=== PATIENT | male | born 1935 | race Caucasian/White ===

== ENCOUNTER 2016-10-22 22:18 | Emergency (ER) | payer OTHER ==
--- NOTE | 2016-10-22 22:26 | PDOC ---
History of Present Illness - General Stated Complaint: PICKED A NODULE ON RIGHT LOWER LEG Time Seen by Provider: 10/22/16 22:22 History Source: Patient Exam Limitations: No Limitations - History of Present Illness Initial Comments: 10/22/16 22:22 This is a 80-year-old male who comes in with his via EMS for evaluation of bleeding of his right lower extremity. Patient has a varicosity on his right lower extremity and there was a small nodule/blood blister that he picked resulting in the varicosity to open and bleed profusely. EMS on their arrival said it was normal stop bleeding but it put pressure on it and by the time he arrived in the emergency room the bleeding had completely resolved. Patient is on aspirin but otherwise denies any blood thinners. Patient denies history of similar problems in the past. Patient denies any other symptoms. PAST MEDICAL HISTORY: no significant history PAST SURGICAL HISTORY: no significant history FAMILY HISTORY: no pertinant history SOCIAL HISTORY: Pt lives with family and is employed. MEDICATIONS: reviewed ALLERGIES: As per nursing notes Review of Systems General: No fevers or chills, no weakness, no weight loss HEENT: No change in vision. No sore throat,. No ear pain CardioVascular: No chest pain or shortness of breath Respiratory:No cough, or wheezing. Gastrointestinal: no nausea, vomitting, diarrhea or constipation, No rectal bleeding Genitourinary: No dysuria, hematuria, or frequency Musculoskeletal: No joint or muscle pain or swelling Neurologic: No headache, vertigo, dizziness or loss of consciousness Psychiatric: nor depression Skin: No rashes or easy bruising, bleeding as per history of present illness Endocrine: no increased thirst or abnormal weight change Allergic: no skin or latex allergy All other systems reviewed and normal GENERAL: The patient is awake, alert, and fully oriented, in no acute distress. HEAD: Normal with no signs of trauma. EYES: Pupils equal, round and reactive to light, extraocular movements intact, sclera anicteric, conjunctiva clear. EXTREMITIES: Normal range of motion, no edema. Right lower extremity medial and just above the ankle there is a small varicosity that is visible with a small approximately 2 mm opening. There is no active bleeding at this time. NEUROLOGICAL: Normal speech, normal gait. PSYCH: Normal mood, normal affect. SKIN: Warm, Dry, normal turgor, no rashes or lesions noted. Procedure note Varicosity was closed with skin glue. Patient tolerated well. Assessment and plan: This is an 80-year-old male who picked at a varicosity and resulted in it bleeding diffusely. Bedtime patient arrived in the emergency room the bleeding had resolved. The varicosity was glued and the patient was discharged home. Past History - Past Medical History Allergies/Adverse Reactions: Allergies Allergy/AdvReac Type Severity Reaction Status Date / Time chlorambucil [From Leukeran] Allergy Intermediate Hives Verified 10/22/16 22:20 Anemia: No Asthma: No Cancer: No Cardiac Disorders: Yes (STENTS TIMES 3 2008) CVA: No COPD: No CHF: No Dementia: No Diabetes: No GI Disorders: No Disorders: No HTN: Yes Hypercholesterolemia: Yes Liver Disease: No Seizures: No Thyroid Disease: No - Surgical History Abdominal Surgery: No Appendectomy: No Cardiac Surgery: Yes (2008 STENTS TIMES ) Cholecystectomy: No Lung Surgery: No Neurologic Surgery: No Orthopedic Surgery: No - Psycho/Social/Smoking Cessation Hx Smoking History: Former smoker Have you smoked in the past 12 months: No If you are a former smoker, when did you quit?: Hx Alcohol Use: Yes (DAILY) Drug/Substance Use Hx: No Substance Use Type: None Hx Substance Use Treatment: No *DC/Admit/Observation/Transfer Diagnosis at time of Disposition: 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 Keep the glue dry for the next 48 hours after that you can shower. Return to the emergency department immediately with ANY new, persistent or worsening symptoms. Continue any medications as previously prescribed by your physician. You should follow up with your primary doctor as soon as possible regarding today's emergency department visit. . Please make sure your doctor reviews the results of your emergency evaluation. Thank you for coming to the Emergency Department today for your care. It was a pleasure to see you today. Please note that your evaluation is INCOMPLETE until you follow-up with your doctor.
[2016-10-22 22:27] VITALS: BP 167/83; PULSE 66; TEMP 97.6; BMI 20.7
== END 2016-10-22 22:32 | disposition home or self-care (01) ==
LOC: FER 22:18
PROC: 0HQKXZZ Repair Right Lower Leg Skin, External Approach (ICD-10-PCS; principal; 2016-10-22)
DX: I83.891 Varicose veins of right lower extremity with other complications (principal); I10 Essential (primary) hypertension; E78.00 Pure hypercholesterolemia, unspecified; Z95.5 Presence of coronary angioplasty implant and graft; Z87.891 Personal history of nicotine dependence
CPT/HCPCS: 12001-25; 99281-25

== ENCOUNTER 2018-07-17 11:25 | Emergency (ER) | payer OTHER ==
[2018-07-17 11:41] VITALS: BP 176/90; PULSE 63; TEMP 98.4
[2018-07-17] MEDS ORDERED: DIPHTH,PERTUSS(ACELL),TET 0.5 ML DISP.SYRIN IM ONE (12:08)
--- NOTE | 2018-07-17 12:13 | PDOC ---
History of Present Illness - General Chief Complaint: Injury Stated Complaint: FALL Time Seen by Provider: 07/17/18 12:08 History Source: Patient Exam Limitations: No Limitations - History of Present Illness Initial Comments: 07/17/18 12:13 82y M hx of htn, membranous glomerulonephritis, hl, cad sp stents x 3 presents for evaluation of a wound sustained sp fall last night. The pt states he slipped in his kitchen last night and fell backwards on his buttocks, and striking his arms on something and avusling his skin when he reachd out to grab somthing. He attempted to remove the skin last night himself but decided to come to get it evaluated. deenies head injury, loc, neck pain, back pain, hip pain, leg pain, arm pain, headache, n/v, recent cough, fever, diarrheam nmelena, bpr, dysuria. pt ntos the pain is mostly on the areas of his skin avulsion. denies being on other blood thinners beside asa. unsure of last tetanus status Past History - Past Medical History Allergies/Adverse Reactions: Allergies Allergy/AdvReac Type Severity Reaction Status Date / Time chlorambucil [From Leukeran] Allergy Intermediate Hives Verified 07/17/18 11:26 Home Medications: Ambulatory Orders Aspirin [ASA -] 81 mg PO ASDIR 10/22/16 Atorvastatin Ca [Lipitor] 20 mg PO HS 10/22/16 Cholecalciferol (Vitamin D3) [Vitamin D-400] 400 unit PO DAILY 07/17/18 Losartan Potassium mg PO DAILY 07/17/18 Anemia: No Asthma: No Cancer: No Cardiac Disorders: Yes (STENTS TIMES 3 2008) CVA: No COPD: No CHF: No Dementia: No Diabetes: No GI Disorders: No Disorders: Yes (KIDNEY MEMBRANOUS GLOMERUNEPHRITIS) HTN: Yes Hypercholesterolemia: Yes Liver Disease: No Seizures: No Thyroid Disease: No Other medical history: ECZEMA - Surgical History Abdominal Surgery: Yes (HERNIA REPAIR) Appendectomy: No Cardiac Surgery: Yes (2008 STENTS TIMES ) Cholecystectomy: No Lung Surgery: No Neurologic Surgery: No Orthopedic Surgery: No - Suicide/Smoking/Psychosocial Hx Smoking History: Never smoked Have you smoked in the past 12 months: No If you are a former smoker, when did you quit?: Information on smoking cessation initiated: No Hx Alcohol Use: Yes (nightly) Drug/Substance Use Hx: No Substance Use Type: None Hx Substance Use Treatment: No Review of Systems - Review of Systems Able to Perform ROS?: Yes Comments:: 07/17/18 12:45 Constitutional - no reported Fever, Chills, HEENT: no reported vision changes, sore throat Respiratory: no reported cough, sob, hemoptysis Cardiac: no reported chest pain, palpitations, light headedness, leg swelling Abd/GI: no reported abd pain, nausea, vomiting, blood per rectum, melena, diarrhea : no reported dysuria, frequency, discharge Musculskelatal - mild L buttock pain no reported back pain, joint swelling skin - +skin avulsion no reported bruising, erythema, rash neurological: no reported headache, numbness, focal weakness, tingling, ataxia, hematologic: no reported easy bruising, easy bleeding *Physical Exam - Vital Signs Last Vital Signs Temp Pulse Resp BP Pulse Ox 98.4 F 63 18 176/90 H 99 07/17/18 11:25 07/17/18 11:25 07/17/18 11:25 07/17/18 11:25 07/17/18 11:25 - Physical Exam Comments: 07/17/18 12:48 GENERAL: The patient is awake, alert, and fully oriented, Nontoxic - in no acute distress. HEAD: Normocephalic, atraumatic. NECK: Normal range of motion, supple LUNGS: Breath sounds equal, clear to auscultation bilaterally. No wheezes, no rhonchi, no rales. HEART: Regular rate and rhythm, normal S1 and S2 without murmur, rub or gallop. ABDOMEN: Soft, nontender, NEUROLOGICAL: No facial assymetry, Normal speech, moving all 4 extremities spontaneously ands ymetrically Back: No midline tenderness to the cervical, thoracic or lumbar spine Musculoskelatal: FROM of b/l shoulders, elbows, wrist. FROM of hips, knees, ankles - No signs of ecchymosis, erythema, or crepitus noted on palpation extremities, chest wall, clavicals, ribs, back. SKIN: [id number] skin avulsion on lateral anterior aspect of R poximal forearm/ elbow 4x3cm skin avulsion on L forearm Moderate Sedation - Procedure Monitoring Vital Signs: Procedure Monitoring Vital Signs Temperature 98.4 F 07/17/18 11:25 Pulse Rate 63 07/17/18 11:25 Respiratory Rate 18 07/17/18 11:25 Blood Pressure 176/90 H 07/17/18 11:25 O2 Sat by Pulse Oximetry (%) 99 07/17/18 11:25 Procedures - Consent Consent obtained: Verbal - Laceration/Wound Repair Right Lateral Volar Elbow Wound Length: 12.6 to 20 cm Wound Explored: clean Wound's Depth, Shape: superficial Irrigated w/ Saline: Yes Anesthesia: 1% Lidocaine Amount of Anesthetic (ccs): 10 Wound Debrided: moderate Sterile Dressing Applied: Yes Progress: 07/17/18 12:51 skin avulsion on L prox forearm and R elbow was irrigated throughly with NS skin was trimmed/dibrided bacitrcin applied xeroform applied with overlying 4x4 sterile gauze with kerlix wrap Left Dorsal Arm Wound Length: 2.6 to 5.0 cm Wound Explored: clean Wound's Depth, Shape: superficial Irrigated w/ Saline: Yes Anesthesia: 1% Lidocaine Amount of Anesthetic (ccs): 1 Wound Debrided: moderate Sterile Dressing Applied: Yes Progress: 07/17/18 12:53 avuslion dibreded of devitalized skin, irrigated w NS, bacitracin applied with xeroform and sterile gauze Medical Decision Making - Medical Decision Making 07/17/18 12:53 82-year-old gentleman status post mechanical fall last night with no LOC, head injury or any other pain presents for treatment of his skin avulsions. no lacerations for repair pts skin avulsions were cleaned dressed updated tetanus 2 day return for wound check return precautions were discussed I discussed the physical exam findings, ancillary test results and final diagnoses with the patient. I answered all of the patient's questions. The patient was satisfied with the care received and felt comfortable with the discharge plan and treatment plan. The patient will call their primary care physician within 24 hours to arrange follow-up and will return to the Emergency Department with any new, persistent or worsening symptoms. *DC/Admit/Observation/Transfer Diagnosis at time of Disposition: Avulsion of skin of elbow Qualifiers: Encounter type: initial encounter Laterality: right Qualified Code(s): S51.001A - Unspecified open wound of right elbow, initial encounter Avulsion of skin of forearm Qualifiers: Encounter type: initial encounter Laterality: left Qualified Code(s): S51.802A - Unspecified open wound of left forearm, initial encounter Fall Qualifiers: Encounter type: initial encounter Qualified Code(s): W19.XXXA - Unspecified fall, initial encounter - Discharge Dispostion Disposition: HOME Condition at time of disposition: Improved Decision to Admit order: No - Referrals Referrals: Leo Kline [Primary Care Provider] - - Patient Instructions Printed Discharge Instructions: DI for Avulsion Laceration (Not Requiring Sutures) Additional Instructions: Keep the wounds clean and dry. Return in 48 hrs for a wound check. pply bacitracin to the wound to keep it moist and dress with a sterile gauze If there is increased pain, bleeding, discharge, warmth fever or other concerns , return to the emergency department for further evaluation. Your Tetanus was updated. - Post Discharge Activity
== END 2018-07-17 12:55 | disposition home or self-care (01) ==
LOC: FER 11:25
PROC: 0HQEXZZ Repair Left Lower Arm Skin, External Approach (ICD-10-PCS; principal; 2018-07-17)
PROC: 0HQDXZZ Repair Right Lower Arm Skin, External Approach (ICD-10-PCS; 2018-07-17)
DX: S51.011A Laceration without foreign body of right elbow, initial encounter (principal); W18.39XA Other fall on same level, initial encounter; Y93.89 Activity, other specified; Y92.89 Other specified places as the place of occurrence of the external cause; I10 Essential (primary) hypertension; Z95.5 Presence of coronary angioplasty implant and graft
CPT/HCPCS: 12006; 99283-25

== ENCOUNTER 2018-07-20 08:19 | Emergency (ER) | payer OTHER ==
--- NOTE | 2018-07-20 08:27 | PDOC ---
History of Present Illness - General Chief Complaint: Wound Stated Complaint: F/U WOUND CHECK Time Seen by Provider: 07/20/18 08:22 - History of Present Illness Initial Comments: 07/20/18 08:54 82-year-old gentleman status post mechanical fall 3 days ago with no LOC, head injury or any other pain, Presented to the emergency department 3 days ago had 2 large skin avulsions to both upper extremities which were cleaned and debrided and covered with bacitracin he presents today to the emergency department for wound check. Wounds are healing well. No fever no bleeding pus no redness. No complaints at this time. Past History - Past Medical History Allergies/Adverse Reactions: Allergies Allergy/AdvReac Type Severity Reaction Status Date / Time chlorambucil [From Leukeran] Allergy Intermediate Hives Verified 07/20/18 08:20 Home Medications: Ambulatory Orders Aspirin [ASA -] 81 mg PO ASDIR 10/22/16 Atorvastatin Ca [Lipitor] 20 mg PO HS 10/22/16 Cholecalciferol (Vitamin D3) [Vitamin D-400] 400 unit PO DAILY 07/17/18 Losartan Potassium 25 mg PO DAILY 07/17/18 Anemia: No Asthma: No Cancer: No Cardiac Disorders: Yes (STENTS TIMES 3 2008) CVA: No COPD: No CHF: No Dementia: No Diabetes: No GI Disorders: No Disorders: Yes (KIDNEY MEMBRANOUS GLOMERUNEPHRITIS) HTN: Yes Hypercholesterolemia: Yes Liver Disease: No Seizures: No Thyroid Disease: No - Surgical History Abdominal Surgery: Yes (HERNIA REPAIR) Appendectomy: No Cardiac Surgery: Yes (2008 STENTS TIMES ) Cholecystectomy: No Lung Surgery: No Neurologic Surgery: No Orthopedic Surgery: No - Suicide/Smoking/Psychosocial Hx Smoking History: Never smoked Have you smoked in the past 12 months: No If you are a former smoker, when did you quit?: 1959'S Hx Alcohol Use: Yes (nightly) Drug/Substance Use Hx: No Substance Use Type: None Hx Substance Use Treatment: No Review of Systems - Review of Systems Comments:: 07/20/18 08:56 ROS: A complete review of 10 out of 10 review of systems is taken and is negative apart from what is previously mentioned below and in the HPI. *Physical Exam - Physical Exam Comments: 07/20/18 08:56 Vitals: Triage Vital signs reviewed General Appearance: no acute distress, well nourished well developed, Head: Atraumatic, Extremities: Full range of motion to all extremities, no cyanosis, clubbing, or edema Skin: Large 15 cm x 10 cm skin avulsion to left upper extremity well-healing good granulation tissue no evidence of infection. 4 cm x 3 cm avulsion to right upper forearm well-healing good granulation tissue no evidence of infection. Neuro: Strength intact to all extremities, Sensation intact to all extremities, gait normal Psych: normal mood, normal affect Medical Decision Making - Medical Decision Making 07/20/18 08:57 Well-healing avulsion injuries no evidence of infection at this time We'll recommend patient continuing bacitracin sterile dressings and follow up with his doctor in 2 days or wound check Findings, the need for follow-up, strict return instructions discussed patient. *DC/Admit/Observation/Transfer Diagnosis at time of Disposition: Skin avulsion - Discharge Dispostion Disposition: HOME Condition at time of disposition: Good Decision to Admit order: No - Referrals - Patient Instructions Additional Instructions: Continue bacitracin twice a day with dressing changes wash in between with water and soap. Return to ED immediately for any redness fever puss signs of infection or for any concerns. Otherwise follow-up with your doctor or return to the ED in 2 days for wound check. - Post Discharge Activity
[2018-07-20 08:37] VITALS: BP 183/95; PULSE 52; TEMP 98.1
== END 2018-07-20 09:04 | disposition home or self-care (01) ==
LOC: FER 08:19
DX: Z48.01 Encounter for change or removal of surgical wound dressing (principal)
CPT/HCPCS: 99282-25

== ENCOUNTER 2018-07-23 09:01 | Emergency (ER) | payer OTHER ==
[2018-07-23 09:04] VITALS: BP 157/75; PULSE 70; TEMP 98.7
--- NOTE | 2018-07-23 09:04 | PDOC ---
History of Present Illness - General Chief Complaint: Revisit,Wound Recheck Stated Complaint: wound check Time Seen by Provider: 07/23/18 09:03 History Source: Patient Exam Limitations: No Limitations - History of Present Illness Initial Comments: Pt is an 82 yo M, with PMH of HTN, HLD, CAD (stents x3), membranous glomerulonephritis, presenting for a wound re-check. Pt had a mechanical fall , and was seen at [place] [facility] for abrasions over his b/l forearms. The wounds were debrided with sterile technique, and pt was told to apply bacitracin ointment and to apply non-stick bandages. Pt was seen again on 07/20 for a re-check of the same wounds, and had no active signs of infection at that time. Pt was told to continue with his wound care regimen. Pt came back to [facility] today, for concerns that there is a small area of bleeding over the wound on the L forearm, and wants to be sure there is no infection. He has been following the wound-care regimen and his pain has been well-controlled. Pt denies any fevers/chills, numbness/tingling of the extremities, loss of muscular strength or sensation, headache, vision changes, syncope, chest pain, palpitations, SOB, nausea/vomiting, abdominal pain, urinary symptoms, diarrhea/ constipation, or joint swelling. Pt has been tolerating PO intake and BM/ urination has been regular. Social: Pt drinks "a glass or two" of scotch per night. Pt denies any cigarette or drug use. Pt denies any recent travel or sick contacts. Surgical: CAD x3 stents, hernia repairs. Family: no relevant history. 07/23/18 09:46 Past History - Travel Traveled outside of the country in the last 30 days: No Close contact w/someone who was outside of country & ill: No - Past Medical History Allergies/Adverse Reactions: Allergies Allergy/AdvReac Type Severity Reaction Status Date / Time chlorambucil [From Leukeran] Allergy Intermediate Hives Verified 07/23/18 09:04 Home Medications: Ambulatory Orders Aspirin [ASA -] 81 mg PO ASDIR 10/22/16 Atorvastatin Ca [Lipitor] 20 mg PO HS 10/22/16 Cholecalciferol (Vitamin D3) [Vitamin D-400] 400 unit PO DAILY 07/17/18 Losartan Potassium 25 mg PO DAILY 07/17/18 Anemia: No Asthma: No Cancer: No Cardiac Disorders: Yes (STENTS TIMES 3 2008) CVA: No COPD: No CHF: No Dementia: No Diabetes: No GI Disorders: No Disorders: Yes (KIDNEY MEMBRANOUS GLOMERUNEPHRITIS) HTN: Yes Hypercholesterolemia: Yes Liver Disease: No Seizures: No Thyroid Disease: No - Surgical History Abdominal Surgery: Yes (HERNIA REPAIR) Appendectomy: No Cardiac Surgery: Yes (2008 STENTS TIMES 3) Cholecystectomy: No Lung Surgery: No Neurologic Surgery: No Orthopedic Surgery: No - Immunization History Immunization Up to Date: Yes - Suicide/Smoking/Psychosocial Hx Smoking History: Never smoked Have you smoked in the past 12 months: No If you are a former smoker, when did you quit?: Hx Alcohol Use: Yes (daily) Drug/Substance Use Hx: No Substance Use Type: None Hx Substance Use Treatment: No Review of Systems - Review of Systems Able to Perform ROS?: Yes Comments:: +wounds over b/l forearms with minimal bleeding of L forearm wound. No erythema or drainage from the site. No significant complaints of pain. Pt denies any fevers/chills, numbness/tingling of the extremities, loss of muscular strength or sensation, headache, vision changes, syncope, chest pain, palpitations, SOB, nausea/vomiting, abdominal pain, urinary symptoms, diarrhea/ constipation, or joint swelling. Pt has been tolerating PO intake and BM/ urination has been regular. 07/23/18 09:48 Is the patient limited Kinyarwanda proficient: No *Physical Exam - Vital Signs Last Vital Signs Temp Pulse Resp BP Pulse Ox 98.7 F 70 18 157/75 97 07/23/18 09:01 07/23/18 09:01 07/23/18 09:01 07/23/18 09:01 07/23/18 09:01 - Physical Exam Comments: Vitals stable, pt afebrile. PE showed pt alert and oriented. 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 No numbness in extremities; radial, ulnar, medial, and axillary dermatomes are all equal in sensation in b/ l arms. Pt has ~1x2 cm abrasion over R forearm, well-healing, no erythema. Debrided area over L forearm ~7x4 cm, well-healing with granulation tissue. Small area of bleeding, well-controlled. No obvious erythema or drainage, no streaking. Radial and brachial pulses intact b/l. Mild tenderness to palpation over the forearms only. Normal neck and HEENT exam, no scleral or skin jaundice , no pharyngeal erythema or exudates. Clear heart and lung sounds, no JVD, b/l pedal edema, nor heart murmur. No respiratory distress or accessory muscle use. No abdominal or CVA tenderness to palpation, no rebound, no guarding. 07/23/18 09:49 Moderate Sedation - Procedure Monitoring Vital Signs: Procedure Monitoring Vital Signs Temperature 98.7 F 07/23/18 09:01 Pulse Rate 70 07/23/18 09:01 Respiratory Rate 18 07/23/18 09:01 Blood Pressure 157/75 07/23/18 09:01 O2 Sat by Pulse Oximetry (%) 97 07/23/18 09:01 Medical Decision Making - Medical Decision Making Pt was seen at bedside, also will be seen by attending Dr. Ambrocio. Pt presenting for a wound re-check. Pt had a mechanical fall 07/17, and was seen at [place] [facility] for abrasions over his b/l forearms. The wounds were debrided with sterile technique, and pt was told to apply bacitracin ointment and to apply non -stick bandages. Pt was seen again on 07/20 for a re-check of the same wounds, and had no active signs of infection at that time. Pt was told to continue with his wound care regimen. Pt came back to [facility] today, for concerns that there is a small area of bleeding over the wound on the L forearm, and wants to be sure there is no infection. He has been following the wound-care regimen and his pain has been well-controlled. Pt denies any fevers/chills, numbness/tingling of the extremities, loss of muscular strength or sensation, headache, vision changes, syncope, chest pain, palpitations, SOB, nausea/vomiting, abdominal pain , urinary symptoms, diarrhea/constipation, or joint swelling. Pt has been tolerating PO intake and BM/urination has been regular. Vitals stable, pt afebrile. PE showed pt alert and oriented. 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 No numbness in extremities; radial, ulnar, medial, and axillary dermatomes are all equal in sensation in b/ l arms. Pt has ~1x2 cm abrasion over R forearm, well-healing, no erythema. Debrided area over L forearm ~7x4 cm, well-healing with granulation tissue. Small area of bleeding, well-controlled. No obvious erythema or drainage, no streaking. Radial and brachial pulses intact b/l. Mild tenderness to palpation over the forearms only. Clear heart and lung sounds, no JVD, b/l pedal edema, or heart murmur. No abdominal or CVA tenderness to palpation, no rebound, no guarding. No obvious signs of infection/cellulitis. Appears to be abrasion extending mildly into the subcut, well-healing with granulation tissue. No compartment syndrome present (no significant pain, swelling, cyanosis, coldness, loss of sensation). Wound was re-wrapped with clean bacitracin, xeroform, and krelex bandage. Pt has adequate supplies at home as well. Pt can be discharged to home with follow-up. Pt advised to follow-up with PCP in 1-2 days and has been referred to wound care clinic for regular follow-up visits/wound-checks. Strict return precautions provided with pt understanding. 07/23/18 09:26 *DC/Admit/Observation/Transfer Diagnosis at time of Disposition: Encounter for wound re-check - Discharge Dispostion Disposition: HOME Condition at time of disposition: Good Decision to Admit order: No - Referrals Referrals: Leo Kline [Primary Care Provider] - Edis Shetty MD [Staff Physician] - - Patient Instructions Printed Discharge Instructions: DI for Debridement of a Wound, Infection, or Burn Additional Instructions: You were seen in the ER today for a wound check. Your wound appears to be healing well, and does not have any active signs of infection. Please continue your regimen of bacitracin ointment and non-stick bandages as you have been doing. Please wash the area with warm water and soap. Please follow-up with your primary care doctor and Dr. Shetty's office (wound care) within 1-2 days to discuss your visit and make sure your symptoms have improved. Please return to the ER if you have any worsening pain, development of fevers or chills, redness or streaking that expands up the arm, loss of strength or sensation in the arm, loss of consciousness, inability to tolerate food or fluids, or any other concerns. - Post Discharge Activity
--- NOTE | 2018-07-23 09:32 | PDOC ---
Attending Attestation - Resident Resident Name: Nichole Vickers - ED Attending Attestation I have performed the following: I have examined & evaluated the patient, The case was reviewed & discussed with the resident, I agree w/resident's findings & plan, Exceptions are as noted - HPI HPI: 07/23/18 09:30 82 M presenting for wound check. Pt had mechanical fall 1 week ago and sustained large skin avulsion to bilateral upper extremities. Has been applying bacitracin to both areas and dressing with xeroform and gauze. Denies any worsening redness/swelling. No F/C. - Physicial Exam PE: 07/23/18 09:31 "GENERAL: Awake, alert, and fully oriented, in no acute distress. HEAD: No signs of trauma EYES: PERRLA, EOMI, sclera anicteric, conjunctiva clear ENT: Auricles normal inspection, hearing grossly normal, nares patent, oropharynx clear without exudates. Moist mucosa NECK: Nontender, no stepoffs, Normal ROM, supple, no lymphadenopathy, JVD, or masses LUNGS: Breath sounds equal, clear to auscultation bilaterally. No wheezes, and no crackles HEART: Regular rate and rhythm, normal S1 and S2, no murmurs, rubs or gallops ABDOMEN: Soft, nontender, normoactive bowel sounds. No guarding, no rebound. No masses EXTREMITIES: Normal range of motion, no edema. No clubbing or cyanosis. No cords, erythema, or tenderness NEUROLOGICAL: Cranial nerves II through XII intact. 5/5 strength and sensation in all extremities, Normal speech, normal gait, normal cerebellar function SKIN: L forearm with 5cm patch of denuded skin, now healing well with granulation tissue. No erythema, no purulence, no fluctuance or induration. R elbow with small 1cm wound now healed with scab. - Medical Decision Making 07/23/18 09:32 82 M presenting for wound check. Wound appears to be healing well, with no signs of infection. - Continue topical bacitracin Pt is well appearing, with normal vitals. Clinically stable for DC at this time. I discussed the physical exam findings, ancillary test results and final diagnoses with the patient. I answered all of the patient's questions. The patient was satisfied with the care received and felt comfortable with the discharge plan and treatment plan. The patient agrees to follow up with the primary care physician within 24-72 hours.
== END 2018-07-23 09:37 | disposition home or self-care (01) ==
LOC: FER 09:01
DX: S50.812D Abrasion of left forearm, subsequent encounter (principal); S50.811D Abrasion of right forearm, subsequent encounter; W01.0XXD Fall on same level from slipping, tripping and stumbling without subsequent striking against object, subsequent encounter; I10 Essential (primary) hypertension; E78.5 Hyperlipidemia, unspecified; I25.10 Atherosclerotic heart disease of native coronary artery without angina pectoris; Z95.5 Presence of coronary angioplasty implant and graft
CPT/HCPCS: 99281-25